=== PATIENT | male | born 1960 | race Two or more races ===

== ENCOUNTER 2017-09-27 07:35 | Inpatient (IN) | payer OTHER, MEDICARE ==
[~2017-09-27] VITALS: Ht 172.7 cm; Wt 125.6 kg
[~2017-09-27 07:35] MED LIST: CENTCHW4 CHEW; METO50TA PO
[2017-09-27] MEDS ORDERED: ceFAZolin 2 GM PREMIX 50 ML IV SCH (08:15)
[2017-09-27] MEDS ORDERED: LACTATED RINGER'S 1000 ML IV PRN (08:15)
[2017-09-27] MEDS ORDERED: CHLORHEXIDINE GLUCONATE 2 % 1 PACK (2 CLOTHS) TOPICAL PRN (08:15)
[2017-09-27] MEDS ORDERED: METOPROLOL TARTRATE 25 MG TAB PO PRN (08:15)
[2017-09-27] MEDS ORDERED: SODIUM CHLORID 0.9% 500 ML IV PRN (08:15)
[2017-09-27] MEDS ORDERED: POVIDONE IODINE 5% (ANTISEPSIS KIT) 4 APPLICATIONS EACH NARE PRN (08:15)
[2017-09-27] MEDS ORDERED: POVIDONE IODINE 7.5% SCRUB 118 ML BOTTLE TOPICAL SCH (08:15)
[2017-09-27] MEDS ORDERED: TRANEXAMIC ACID 1 GM PRIOR TO PROCEDURE IV SCH ×2 (09:00)
[2017-09-27] MEDS ORDERED: ACETAMINOPHEN 1000 MG/100 ML 100 ML IV ONE (09:04)
[2017-09-27] MEDS ORDERED: BUPIVACAINE LIPOSOME PF 1.3% 20 ML VIAL ONE (09:15)
[2017-09-27] MEDS ORDERED: XARE10TA PO (09:23)
[2017-09-27] MEDS ORDERED: PERC7.5T13 PO (09:23)
[2017-09-27] MEDS ORDERED: MAGNESIUM HYDROXIDE SUSP 30 ML CUP PO PRN (09:30)
[2017-09-27] MEDS ORDERED: SODIUM CHLORIDE 0.9% FLUSH 10 ML FLUSH IV FLUSH PRN (09:30)
[2017-09-27] MEDS ORDERED: PROMETHAZINE HCL 25 MG TAB PO PRN (09:30)
[2017-09-27] MEDS ORDERED: Post-op Orders (for Pharmacy) MISC XX ONE (09:30)
[2017-09-27] MEDS ORDERED: BISACODYL 10 MG SUPP RECTAL PRN (09:30)
[2017-09-27] MEDS ORDERED: ONDANSETRON HCL 4 MG/2 ML VIAL IVP PRN (09:30)
[2017-09-27] MEDS ORDERED: MORPHINE SULFATE 8 MG/ML INJ IV PUSH PRN (09:30)
[2017-09-27] MEDS ORDERED: TRANEXAMIC ACID INJ 1,000 MG in SODIUM CHLORIDE 0.9% INJ 100 ML IV SCH (09:30)
[2017-09-27] MEDS ORDERED: LACTULOSE SYRUP 20 GM/30 ML CUP PO PRN (09:30)
[2017-09-27] MEDS ORDERED: oxyCODONE/ACETAMINOPHEN 7.5 MG/325 MG TAB PO PRN (09:30)
[2017-09-27] MEDS ORDERED: oxyCODONE/ACETAMINOPHEN 5 MG/325 MG TAB PO PRN (09:30)
[2017-09-27] MEDS ORDERED: SENNOSIDES 8.6 MG TAB PO PRN (09:30)
--- NOTE | 2017-09-27 09:34 | HHI.DS ---
Discharge Summary Admission Date Sep 27, 2017 at 07:35 Discharge Date: Sep 29, 2017 Admitting Diagnosis Right knee osteoarthritis Diagnosis: (1) Osteoarthritis of right knee Diagnosis: Principal ICD Codes: M17.11 - Unilateral primary osteoarthritis, right knee Procedures Right total knee replacement Brief History This is a 57 year old male patient who presented with severe debilitating right knee pain from right osteoarthritis. He has failed all conservative care as outlined in previous outpatient clinic dictations. He now presents for right total knee replacement. Hospital Course The patient was taken to the operating room by the undersigned for the above procedures which he tolerated well. He was extubated then transferred to PACU in stable condition. The patient was subsequently transferred to the floor. The rest of his hospital stay was uneventful. After second procedure, he received adequate postoperative antibiotics. His diet was advanced as tolerated and he had full return of bowel function as well as making adequate urine output. We were able to covert IV pain meds to po pain meds. The patient received adequate physical therapy during his stay in is being discharged with detailed physical therapy recommendations and C. The patient was seen and examined on the day of discharge and found to be in stable condition. On Exam at discharge: Operative extremity was neurovascularly intact with dressing that is clean, dry and intact. Follow-up 10-[address] Mcneill @ orthopaedic clinic with a [facility]. Pt Condition on Discharge: Good Discharge Disposition: Disch w/ Home Health Serv Discharge Instructions Diet Instructions: As Tolerated, No Restrictions Activities You Can Perform: Regular-No Restrictions Activities to Avoid: Lifting/Bending, Prolonged Standing Angel Mcneill Jr., MD Sep 27, 2017 09:34
--- NOTE | 2017-09-27 09:35 | HHI.FF ---
Face to Face Verification Diagnosis: (1) Osteoarthritis of right knee Physical Therapy Gait training Knee: Total knee, Protocol: Right Right LE Weight Bearing: WB as tolerated Right LE Range of Motion: Active ROM Nursing Nursing: Other (no dressing changes) Dressing Changes: Do not change dressing I have seen patient Say Chin on 09/27/17. My clinical findings support the need for the requested home health care services because: Ltd mobility - disease progression High risk of falls I certify that my clinical findings support that this patient is homebound because: Post-op weakness Unsteady gait/balance Angel Mcneill Jr., MD Sep 27, 2017 09:35
[2017-09-27] MEDS: TRANEXAMIC ACID 1 GM POST-OP IV SCH ×4 (10:53→12:59)
[2017-09-27] MEDS: EXPAREL PERI-ARTICULAR INJECTION (TOTAL VOL. 60 ML) P-ARTICULR SCH ×4 (10:54→10:56)
--- NOTE | 2017-09-27 12:06 | PD.OP ---
cc: Angel Mcneill Jr., MD Operative Report Date of Surgery: Sep 27, 2017 Preoperative Diagnosis: Right knee osteoarthritis Postoperative Diagnosis: Same Procedure: Right total knee arthroplasty Anesthesia: Gen. Surgeon: Angel Mcneill Aerodynamics Engineer(s): BRITTNI Salazar The surgical procedure was assisted by my Advanced Registered Nurse Practitioner. My FUNERAL DRIVER presence was necessary throughout this case for the manipulation and positioning of the surgical extremity. My FUNERAL DRIVER was assisting me throughout the duration of this procedure. The skill set of an Advance Registered Nurse Practitioner was medically necessary to complete this procedure. During the surgical case, the surgical nurse practitioner was working at the back table and the Advance Registered Nurse Practitioner was directly assisting me. Resident Surgeon: Dixon Operation and Findings: ESTIMATED BLOOD LOSS: 150 cc TOURNIQUET TIME: 83 minutes at 250 mmHg pressure. JUSTIFICATION FOR PROCEDURE: The patient has end-stage osteoarthritis to the knee. There is an attached conservative measures pathway form in the chart that describes the nonoperative measures that were undertaken prior to consideration of surgical management. The patient understood the risks and benefits of surgical management. See my office notes for further details PROCEDURE: The patient was brought back to the operative theatre. Adequate anesthesia was obtained. The patient received intravenous Ancef. The right lower extremity was prepped and draped in the usual sterile fashion.The leg was exsanguinated, the tourniquet was raised. A standard anterior incision was performed followed by medial parapatellar arthrotomy was performed. End-stage arthritis was identified. Osteotomy of the patella was performed. We drilled holes for the patella. We trialed the patella component. We placed an intramedullary guide into the distal femur. We ultimately resected 9 mm off of the distal femur in 5 degrees of valgus. The remnants of the ACL and PCL were resected. Osteotomy of the proximal tibia was performed, resecting 5 mm off of the medial side. This was done with 3 degrees of posterior slope using an extramedullary guide. The distal end of the guide was placed in the mid aspect of the ankle. The femur was sized, and four chamfer cuts were completed in 3 of external rotation. We then cut the central box in the distal femur to replace the PCL. We resected the remnants of the menisci and removed osteophytes off of the femur and tibia. We then trialed the knee. We punched the tibia for the keel, and then used standard technique to cement in components. Excess cement was removed. We trialed the knee again and the final polyethylene thickness was chosen to provide extension to 0 degrees, and flexion of 140 degrees to gravity. The ligaments were appropriately balanced. Lateral release was not necessary to obtain excellent patellofemoral tracking. The final polyethylene was put into position after thorough irrigation. The tourniquet was released and adequate hemostasis was obtained. We then closed deep fascia with a #2 quilt sutures followed by skin with 2-0 Vicryl followed by rox. No drain was placed deep. IMPLANTS: DePuy Attune: Patella: size 35 Femur, posterior stabilized size 6 Tibia, rotating platform size 6 Tibial insert, rotating platform, posterior stabilized size 5 mm thickness. POSTP-OP PLAN OF ACTIVITY Antibiotics: Ancef DVT prophylaxis will be performed with SCDs, OLIVER garcia, early mobilization, and Lovenox while hospitalized (xeralto at discharge for 30 days) Weight bearing status: wbat Dressing: do not change Dispo: expected discharge 2-3 days with [facility] Angel Mcneill Jr., MD Sep 27, 2017 12:06
[2017-09-27] MEDS ORDERED: DO NOT ADM ANY ANTICOAGULANT DRUGS PRN (12:34)
[2017-09-27] MEDS: LACTATED RINGER'S 1000 ML INJ 1,000 ML IV SCH ×2 (13:00→23:33)
[2017-09-27] MEDS: KETOROLAC TROMETHAMINE 30 MG/ML (IVP) VIAL IVP SCH ×3 (13:50→22:49)
[2017-09-27] MEDS ORDERED: *morphine SULFATE 8 MG/ML PERIprocedure ONLY ONE ×2 (13:51→14:13)
--- NOTE | 2017-09-27 15:15 | PD.CONS ---
[facility] By [facility]. [facility] Reason for Consult Medical management Primary Care Physician No Primary Care Physician Diagnoses: History of Present Illness The patient is a 57-year-old male with past medical history of osteoarthritis who is presenting to the hospital for elective right knee replacement. The patient says that he has had a painful right knee for the past 3 years. He says he has not tried using steroid injections. He has been taking Vicodin for pain control. He has been ambulating with a cane. He says he is slowly able to go up and down stairs. He has been following up with orthopedic surgery who scheduled him for surgery on 09/27/17. The patient tolerated the procedure well. He is hoping to go home in a few days. He is quite hungry. He had no acute complaints. Discussed with family at the bedside. Review of Systems Except as stated in HPI: all other systems reviewed are Neg Past Family Social History Allergies: Coded Allergies: No Known Allergies (Unverified , 09/27/17) Past Medical History Hypertension Osteoarthritis Intestinal blockage status post surgical repair Past Surgical History Right wrist surgery Cholecystectomy Bilateral shoulder surgery Active Ordered Medications Current Medications Medications (Trade) Dose Ordered Sig/Argelia Route Start Time Stop Time Status Last Admin Lactated Ringer's 1,000 ml @ 30 mls/hr Q24H PRN IV 09/27/17 08:15 09/30/17 08:14 09/27/17 08:19 Sodium Chloride 500 ml @ 30 mls/hr [id number] PRN IV 09/27/17 08:15 09/30/17 08:14 (Lopressor) 25 mg AUTO CAMP ATTENDANT PRN PO 09/27/17 08:15 09/30/17 08:14 (Betadine 5% Antisepsis Kit) 1 applic AUTO CAMP ATTENDANT PRN EACH NARE 09/27/17 08:15 09/30/17 08:14 09/27/17 08:19 (Chlorhexidine 2% Cloth) 3 pack AUTO CAMP ATTENDANT PRN TOPICAL 09/27/17 08:15 09/30/17 08:14 09/27/17 08:19 (Betadine 7.5% Scrub) 1 applic ONCE TOPICAL 09/27/17 08:15 09/30/17 08:14 09/27/17 08:18 Cefazolin Sodium/ Dextrose 50 ml @ 100 mls/hr AUTO CAMP ATTENDANT IV 09/27/17 08:15 09/30/17 08:14 09/27/17 10:52 Tranexamic Acid 1000 mg/Sodium Chloride 110 ml @ 220 mls/hr ONCE IV 09/27/17 09:00 09/28/17 08:59 Tranexamic Acid 1000 mg/Sodium Chloride 110 ml @ 220 mls/hr ONCE IV 09/27/17 11:00 09/28/17 10:59 09/27/17 12:59 Bupivacaine Liposome 20 ml/ Sodium Chloride 60 ml @ 120 mls/hr ONCE P-ARTICULR 09/27/17 09:00 09/28/17 08:59 09/27/17 10:56 (Lopressor) 50 mg BID PO 09/27/17 21:00 Lactated Ringer's 1,000 ml @ 80 mls/hr [id number] IV 09/27/17 11:45 09/27/17 13:00 (NS Flush) 2 ml UNSCH PRN IV FLUSH 09/27/17 09:30 (NS Flush) 2 ml BID IV FLUSH 09/27/17 21:00 Cefazolin Sodium 1000 mg/Sodium Chloride 100 ml @ 200 mls/hr Q6H IV 09/27/17 17:00 09/28/17 05:29 (Lovenox Inj) 30 mg Q12H SQ 09/28/17 00:30 (Morphine Inj) 5 mg Q3H PRN IV PUSH 09/27/17 09:30 (Percocet 5-325 Mg) 1 tab Q4H PRN PO 09/27/17 09:30 (Percocet 5-325 Mg) 2 tab Q4H PRN PO 09/27/17 09:30 (Toradol Inj) 15 mg Q6H IVP 09/27/17 12:00 09/29/17 06:01 09/27/17 13:50 (Phenergan) 25 mg Q4H PRN PO 09/27/17 09:30 (Zofran Inj) 4 mg Q6H PRN IVP 09/27/17 09:30 (Ambien) 5 mg HS PRN PO 09/27/17 21:00 (Анна-Colace) 1 tab BID PO 09/27/17 21:00 (Milk Of Magnesia Liq) 30 ml Q12H PRN PO 09/27/17 09:30 (Senokot) 17.2 mg Q12H PRN PO 09/27/17 09:30 (Dulcolax Supp) 10 mg DAILY PRN RECTAL 09/27/17 09:30 (Lactulose Liq) 30 ml DAILY PRN PO 09/27/17 09:30 Miscellaneous Information ALL NURSING DEPARTME... UNSCH PRN .XX 09/27/17 12:34 09/28/17 12:33 Family History CAD Social History The patient denies smoking, drinking or using illicit substances. Physical Exam Vital Signs Vital Signs Date Time Temp Pulse Resp B/P (MAP) Pulse Ox O2 Delivery O2 Flow Rate FiO2 09/27/17 12:36 97.8 74 17 118/74 (89) 98 Nasal Cannula 3 09/27/17 08:00 98.6 60 16 127/90 (102) 98 Physical Exam GENERAL: This is a well-nourished, well-developed patient, in no apparent distress. SKIN: No rashes, ecchymoses or lesions. Cool and dry. HEAD: Atraumatic. Normocephalic. No temporal or scalp tenderness. EYES: Pupils equal round and reactive. Extraocular motions intact. No scleral icterus. No injection or drainage. ENT: Nose without bleeding, purulent drainage or septal hematoma. Throat without erythema, tonsillar hypertrophy or exudate. Uvula midline. Airway patent. NECK: Trachea midline. No JVD or lymphadenopathy. Supple, nontender, no meningeal signs. CARDIOVASCULAR: Regular rate and rhythm without murmurs, gallops, or rubs. RESPIRATORY: Clear to auscultation. Breath sounds equal bilaterally. No wheezes , rales, or rhonchi. GASTROINTESTINAL: Abdomen soft, non-tender, nondistended. No hepato-splenomegaly , or palpable masses. No guarding. MUSCULOSKELETAL: Right knee is bandaged and elevated. NEUROLOGICAL: Awake and alert. Cranial nerves II through XII intact. Motor and sensory grossly within normal limits. Five out of 5 muscle strength in all muscle groups. Normal speech. Assessment and Plan Assessment and Plan OA S/p right total knee arthroplasty 09/27/17. - anticoagulation, wound care and weightbearing per orthopedic surgery. - PT/ OT. - pain control with a bowel regimen. - incentive spirometry. HTN On Lopressor as an outpt. - resume home meds. - Vasotec as needed. PPx: Per orthopedic surgery Discussed Condition With Patient, patient's family Elier Gibson DO Sep 27, 2017 15:15
[2017-09-27 16:00] VITALS: BP 105/57; PULSE 72; RESP 19; TEMP 97.4; O2SAT 98
--- NOTE | 2017-09-27 16:16 | RADRPT ---
EXAM DATE/TIME: 09/27/2017 14:08 [place] COMPARISON: No previous studies available for comparison. INDICATIONS : Post operative knee x-ray. MEDICAL HISTORY : None. SURGICAL HISTORY : None. ENCOUNTER: Subsequent ACUITY: 1 day PAIN SCORE: 10/10 LOCATION: Right Knee. FINDINGS: AP and lateral views of the right knee demonstrate changes consistent with recent total knee arthropl asty with metallic hardware in place in the distal femur and proximal tibia. There is a radiolucent p atellar component. There is soft tissue gas present, as expected. CONCLUSION: Expected findings following recent right total knee arthroplasty. Zoran Ware MD on September 27, 2017 at 16:14 Board Certified Radiologist. This report was verified electronically.
[2017-09-27 20:00] VITALS: BP 128/69; PULSE 77; RESP 18; TEMP 96; O2SAT 95
[2017-09-27] MEDS ORDERED: ZOLPIDEM TARTRATE 5 MG TAB PO PRN (21:00)
[2017-09-27] MEDS: METOPROLOL TARTRATE 50 MG TAB PO SCH (22:02)
[2017-09-27] MEDS: DOCUSATE SODIUM 50 MG/SENNA 8.6 MG TAB PO SCH (22:02)
[2017-09-27] MEDS: oxyCODONE/ACETAMINOPHEN 5 MG/325 MG TAB PO PRN (22:02)
[2017-09-27] MEDS: SODIUM CHLORIDE 0.9% FLUSH 10 ML FLUSH IV FLUSH SCH (22:03)
[2017-09-28] VITALS: BP 107/71; PULSE 80; RESP 17; TEMP 96.9; O2SAT 97
[2017-09-28] MEDS: ENOXAPARIN SODIUM 30 MG/0.3 ML SYRINGE SQ SCH ×2 (00:48→12:23)
[2017-09-28] MEDS: oxyCODONE/ACETAMINOPHEN 5 MG/325 MG TAB PO PRN ×4 (02:35→17:36)
[2017-09-28 04:00] VITALS: BP 114/67; PULSE 73; RESP 16; TEMP 96.2; O2SAT 96
[2017-09-28] MEDS: KETOROLAC TROMETHAMINE 30 MG/ML (IVP) VIAL IVP SCH ×3 (05:27→17:35)
[2017-09-28 05:51] LABS: MEAN CELL VOLUME 97.2 FL (80.0-100.0); MEAN CORPUSCULAR HEMOGLOBIN 32.8 PG (27.0-34.0); MEAN CORPUSCULAR HGB CONC 33.7 % (32.0-36.0); PLATELET COUNT 275 TH/MM3 (150-450); RED BLOOD COUNT 3.29 MIL/MM3 (4.50-5.90); REVIEW FLAG FINAL; WHITE BLOOD COUNT 16.6 TH/MM3 (4.0-11.0)
[2017-09-28 06:12] LABS: BICARBONATE 25.3 MEQ/L (21.0-32.0); MAGNESIUM 1.6 MG/DL (1.5-2.5); POTASSIUM 4.6 MEQ/L (3.5-5.1)
[2017-09-28 08:00] VITALS: BP 113/66; PULSE 68; RESP 18; TEMP 96.5; O2SAT 94
[2017-09-28] MEDS: DOCUSATE SODIUM 50 MG/SENNA 8.6 MG TAB PO SCH ×3 (08:52→20:46)
[2017-09-28] MEDS: METOPROLOL TARTRATE 50 MG TAB PO SCH ×2 (08:52→20:46)
[2017-09-28] MEDS: SODIUM CHLORIDE 0.9% FLUSH 10 ML FLUSH IV FLUSH SCH ×2 (08:55→21:00)
[2017-09-28 12:00] VITALS: BP 115/73; PULSE 71; RESP 18; TEMP 96.1; O2SAT 98
[2017-09-28 12:17] LABS: HEMOGLOBIN A1a 0.8 %; HEMOGLOBIN A1b 1.1 %; HEMOGLOBIN Ao 86.2 %; HEMOGLOBIN F 0.8 %; HEMOGLOBIN LA1C 2.3 %; HEMOGLOBIN P3 3.6 %
[2017-09-28] MEDS: LACTATED RINGER'S 1000 ML INJ 1,000 ML IV SCH (12:45)
--- NOTE | 2017-09-28 12:55 | PD.ORT.PN ---
Subjective Distance Walked doing well. participating with PT. no CP/SOB Objective Vitals Vital Signs Date Time Temp Pulse Resp B/P (MAP) Pulse Ox O2 Delivery O2 Flow Rate FiO2 09/28/17 08:58 Room Air 09/28/17 08:00 96.5 68 18 113/66 (82) 94 09/28/17 06:27 17 09/28/17 04:00 96.2 73 16 114/67 (83) 96 09/28/17 03:31 17 09/28/17 00:05 Room Air 09/28/17 00:00 96.9 80 17 107/71 (83) 97 09/27/17 20:00 96.0 77 18 128/69 (88) 95 09/27/17 16:00 97.4 72 19 105/57 (73) 98 09/27/17 14:45 97.8 74 18 114/69 (84) 98 Nasal Cannula 2 09/27/17 14:15 75 18 102/64 (77) 98 Nasal Cannula 2 09/27/17 14:00 70 18 119/77 (91) 98 Nasal Cannula 2 09/27/17 13:45 66 18 127/76 (93) 100 Nasal Cannula 2 09/27/17 13:30 66 16 123/71 (88) 98 Nasal Cannula 2 09/27/17 13:15 67 18 120/74 (89) 98 Nasal Cannula 3 09/27/17 13:00 65 18 114/69 (84) 98 Nasal Cannula 3 I/O 09/27/17 09/27/17 09/27/17 09/28/17 09/28/17 09/28/17 07:00 15:00 23:00 07:00 15:00 23:00 Intake Total 1510 ml 650 ml 550 ml Output Total 150 ml 700 ml 450 ml Balance 1360 ml -50 ml 100 ml Intake Oral 650 ml 350 ml IV Total 110 ml 200 ml Other 1400 ml Output Urine Total 700 ml 450 ml Other 150 ml Result Diagram: 09/28/1752209/28/17522 Procedures Right total knee replacement Objective Remarks Alert awake and oriented -3. No acute distress. Pulmonary: Normal respiratory effort. Right lower extremity: Neurovascularly intact, +EHL/FHL, CPM, dressing clean, dry and intact. + PT/DP pulses. Supple compartments. Negative Homans sign. Left lower extremity: neurovascularly intact Assessment & Plan Problem List: (1) Osteoarthritis of right knee ICD Codes: M17.11 - Unilateral primary osteoarthritis, right knee Assessment and Plan POD 1- right TKA doing well. postop abx lovenox- xeralto at f/c for 30 days wbat no dressing changes dc home tomorrow with [facility] Angel Mcneill Jr., MD Sep 28, 2017 12:55
[2017-09-28] MEDS ORDERED: SODIUM CHLOR 0.9% 1000 ML INJ 1,000 ML IV SCH (14:45)
--- NOTE | 2017-09-28 15:11 | HHI.PR ---
Subjective Remarks The patient feels well. He has been working with physical therapy. His pain control is okay. Tolerating a diet. Discussed with nursing. Objective Vitals Vital Signs Date Time Temp Pulse Resp B/P (MAP) Pulse Ox O2 Delivery O2 Flow Rate FiO2 09/28/17 12:00 96.1 71 18 115/73 (87) 98 09/28/17 08:58 Room Air 09/28/17 08:00 96.5 68 18 113/66 (82) 94 09/28/17 06:27 17 09/28/17 04:00 96.2 73 16 114/67 (83) 96 09/28/17 03:31 17 09/28/17 00:05 Room Air 09/28/17 00:00 96.9 80 17 107/71 (83) 97 09/27/17 20:00 96.0 77 18 128/69 (88) 95 09/27/17 16:00 97.4 72 19 105/57 (73) 98 I/O 09/27/17 09/27/17 09/27/17 09/28/17 09/28/17 09/28/17 07:00 15:00 23:00 07:00 15:00 23:00 Intake Total 1510 ml 650 ml 550 ml Output Total 150 ml 700 ml 450 ml Balance 1360 ml -50 ml 100 ml Intake Oral 650 ml 350 ml IV Total 110 ml 200 ml Other 1400 ml Output Urine Total 700 ml 450 ml Other 150 ml Result Diagram: 09/28/17 0523 09/28/17 0523 Imaging Last Impressions Knee X-Ray 09/27/17 0000 Signed Impressions: Service Date/Time: Wednesday, September 27, 2017 14:08 - CONCLUSION: Expected findings following recent right total knee arthroplasty. Zoran Ware MD Objective Remarks GENERAL: This is a well-nourished, well-developed patient, in no apparent distress. SKIN: No rashes, ecchymoses or lesions. Cool and dry. HEAD: Atraumatic. Normocephalic. No temporal or scalp tenderness. EYES: Pupils equal round and reactive. Extraocular motions intact. No scleral icterus. No injection or drainage. ENT: Nose without bleeding, purulent drainage or septal hematoma. Throat without erythema, tonsillar hypertrophy or exudate. Uvula midline. Airway patent. NECK: Trachea midline. No JVD or lymphadenopathy. Supple, nontender, no meningeal signs. CARDIOVASCULAR: Regular rate and rhythm without murmurs, gallops, or rubs. RESPIRATORY: Clear to auscultation. Breath sounds equal bilaterally. No wheezes , rales, or rhonchi. GASTROINTESTINAL: Abdomen soft, non-tender, nondistended. No hepato-splenomegaly , or palpable masses. No guarding. MUSCULOSKELETAL: Right knee is bandaged and elevated. NEUROLOGICAL: Awake and alert. Cranial nerves II through XII intact. Motor and sensory grossly within normal limits. Five out of 5 muscle strength in all muscle groups. Normal speech. Procedures Right knee replacement Medications and IVs Current Medications Medications (Trade) Dose Ordered Sig/Argelia Route Start Time Stop Time Status Last Admin Lactated Ringer's 1,000 ml @ 30 mls/hr Q24H PRN IV 09/27/17 08:15 09/30/17 08:14 09/27/17 08:19 Sodium Chloride 500 ml @ 30 mls/hr [id number] PRN IV 09/27/17 08:15 09/30/17 08:14 (Lopressor) 25 mg RADIO REPORTER PRN PO 09/27/17 08:15 09/30/17 08:14 (Betadine 5% Antisepsis Kit) 1 applic RADIO REPORTER PRN EACH NARE 09/27/17 08:15 09/30/17 08:14 09/27/17 08:19 (Chlorhexidine 2% Cloth) 3 pack RADIO REPORTER PRN TOPICAL 09/27/17 08:15 09/30/17 08:14 09/27/17 08:19 (Betadine 7.5% Scrub) 1 applic ONCE TOPICAL 09/27/17 08:15 09/30/17 08:14 09/27/17 08:18 Cefazolin Sodium/ Dextrose 50 ml @ 100 mls/hr RADIO REPORTER IV 09/27/17 08:15 09/30/17 08:14 09/27/17 10:52 (Lopressor) 50 mg BID PO 09/27/17 21:00 09/28/17 08:52 Lactated Ringer's 1,000 ml @ 80 mls/hr [id number] IV 09/27/17 11:45 09/27/17 13:00 (NS Flush) 2 ml UNSCH PRN IV FLUSH 09/27/17 09:30 (NS Flush) 2 ml BID IV FLUSH 09/27/17 21:00 (Lovenox Inj) 30 mg Q12H SQ 09/28/17 00:30 09/28/17 12:23 (Morphine Inj) 5 mg Q3H PRN IV PUSH 09/27/17 09:30 (Percocet 5-325 Mg) 1 tab Q4H PRN PO 09/27/17 09:30 09/27/17 17:18 (Percocet 5-325 Mg) 2 tab Q4H PRN PO 09/27/17 09:30 09/28/17 12:24 (Toradol Inj) 15 mg Q6H IVP 09/27/17 12:00 09/29/17 06:01 09/28/17 12:23 (Phenergan) 25 mg Q4H PRN PO 09/27/17 09:30 (Zofran Inj) 4 mg Q6H PRN IVP 09/27/17 09:30 (Ambien) 5 mg HS PRN PO 09/27/17 21:00 (Анна-Colace) 1 tab BID PO 09/27/17 21:00 09/27/17 22:02 (Milk Of Magnesia Liq) 30 ml Q12H PRN PO 09/27/17 09:30 (Senokot) 17.2 mg Q12H PRN PO 09/27/17 09:30 (Dulcolax Supp) 10 mg DAILY PRN RECTAL 09/27/17 09:30 (Lactulose Liq) 30 ml DAILY PRN PO 09/27/17 09:30 Sodium Chloride 1,000 ml @ 100 mls/hr Q10H IV 09/28/17 14:45 09/29/17 00:44 A/P Assessment and Plan OA S/p right total knee arthroplasty 09/27/17. - anticoagulation, wound care and weightbearing per orthopedic surgery. - PT/ OT. - pain control with a bowel regimen. - incentive spirometry. HTN On Lopressor as an outpt. - resume home meds. - Vasotec as needed. Hyperglycemia/ Leukocytosis Likely a stress reaction. Hemoglobin A1c was not elevated. Afebrile. - Follow CBC. Renal insufficiency Unsure of baseline. - IV fluids. - Repeat BMP in the a.m. - Avoid nephrotoxic agents. Anemia Postoperative. - Follow CBC. PPx: Per orthopedic surgery Elier Gibson DO Sep 28, 2017 15:11
[2017-09-28 16:00] VITALS: BP 118/68; PULSE 77; RESP 18; TEMP 98; O2SAT 96
[2017-09-28 20:36] VITALS: BP 106/69; PULSE 70; RESP 18; TEMP 97.9; O2SAT 100
[2017-09-29] MEDS: ENOXAPARIN SODIUM 30 MG/0.3 ML SYRINGE SQ SCH ×2 (00:18→12:16)
[2017-09-29] MEDS: KETOROLAC TROMETHAMINE 30 MG/ML (IVP) VIAL IVP SCH ×2 (00:18→06:06)
[2017-09-29 00:21] VITALS: BP 100/71; PULSE 72; RESP 18; TEMP 96.8; O2SAT 100
[2017-09-29 06:49] LABS: HEMATOCRIT 28.7 % (39.0-51.0); MEAN CELL VOLUME 97.5 FL (80.0-100.0); MEAN CORPUSCULAR HEMOGLOBIN 33.8 PG (27.0-34.0); MEAN CORPUSCULAR HGB CONC 34.6 % (32.0-36.0); PLATELET COUNT 229 TH/MM3 (150-450); RED BLOOD COUNT 2.94 MIL/MM3 (4.50-5.90); REVIEW FLAG FINAL
[2017-09-29 07:11] LABS: BICARBONATE 28.1 MEQ/L (21.0-32.0); MAGNESIUM 1.9 MG/DL (1.5-2.5); POTASSIUM 4.4 MEQ/L (3.5-5.1)
[2017-09-29 08:01] VITALS: BP 95/67; PULSE 60; RESP 18; TEMP 97.7; O2SAT 96
[2017-09-29] MEDS: METOPROLOL TARTRATE 50 MG TAB PO SCH (08:24)
[2017-09-29] MEDS: DOCUSATE SODIUM 50 MG/SENNA 8.6 MG TAB PO SCH (08:24)
[2017-09-29] MEDS: SODIUM CHLORIDE 0.9% FLUSH 10 ML FLUSH IV FLUSH SCH (08:24)
[2017-09-29] MEDS: oxyCODONE/ACETAMINOPHEN 5 MG/325 MG TAB PO PRN (09:01)
[2017-09-29 11:53] VITALS: BP 115/72; PULSE 73; RESP 18; TEMP 96.1; O2SAT 99
--- NOTE | 2017-09-29 12:20 | PD.ORT.PN ---
Subjective Subjective Remarks no issues. pain controlled. no CP/SOB Objective Vitals Vital Signs Date Time Temp Pulse Resp B/P (MAP) Pulse Ox O2 Delivery O2 Flow Rate FiO2 09/29/17 11:53 96.1 73 18 115/72 (86) 99 09/29/17 08:01 97.7 60 18 95/67 (76) 96 09/29/17 08:00 96 Room Air 09/29/17 08:00 96 Room Air 09/29/17 00:21 96.8 72 18 100/71 (81) 100 09/28/17 20:36 97.9 70 18 106/69 (81) 100 09/28/17 16:00 98.0 77 18 118/68 (85) 96 I/O 09/28/17 09/28/17 09/28/17 09/29/17 09/29/17 09/29/17 07:00 15:00 23:00 07:00 15:00 23:00 Intake Total 550 ml 480 ml 360 ml 120 ml Output Total 450 ml Balance 100 ml 480 ml 360 ml 120 ml Intake Oral 350 ml 480 ml 360 ml 120 ml IV Total 200 ml Output Urine Total 450 ml # Voids 5 6 2 # Bowel Movements 0 2 1 Result Diagram: 09/29/17 0611 09/29/17 0611 Procedures Right total knee replacement Objective Remarks Alert awake and oriented -3. No acute distress. Pulmonary: Normal respiratory effort. Right lower extremity: Neurovascularly intact, +EHL/FHL, CPM, dressing clean, dry and intact. + PT/DP pulses. Supple compartments. Negative Homans sign. Left lower extremity: neurovascularly intact Assessment & Plan Problem List: (1) Osteoarthritis of right knee ICD Codes: M17.11 - Unilateral primary osteoarthritis, right knee Assessment and Plan POD 2- right TKA doing well. xeralto at f/c for 30 days wbat no dressing changes dc home today w [facility]. Rx in chart Angel Mcneill Jr., MD Sep 29, 2017 12:20
--- NOTE | 2017-09-29 14:24 | HHI.PR ---
Subjective Remarks The patient was getting ready to go home. He endorsed a minor cough. He denied any dysuria. Discussed with nursing. Objective Vitals Vital Signs Date Time Temp Pulse Resp B/P (MAP) Pulse Ox O2 Delivery O2 Flow Rate FiO2 09/29/17 11:53 96.1 73 18 115/72 (86) 99 09/29/17 08:01 97.7 60 18 95/67 (76) 96 09/29/17 08:00 96 Room Air 09/29/17 08:00 96 Room Air 09/29/17 00:21 96.8 72 18 100/71 (81) 100 09/28/17 20:36 97.9 70 18 106/69 (81) 100 09/28/17 16:00 98.0 77 18 118/68 (85) 96 I/O 09/28/17 09/28/17 09/28/17 09/29/17 09/29/17 09/29/17 07:00 15:00 23:00 07:00 15:00 23:00 Intake Total 550 ml 480 ml 360 ml 120 ml Output Total 450 ml Balance 100 ml 480 ml 360 ml 120 ml Intake Oral 350 ml 480 ml 360 ml 120 ml IV Total 200 ml Output Urine Total 450 ml # Voids 5 6 2 # Bowel Movements 0 2 1 Result Diagram: 09/29/17 0611 09/29/17 0611 Imaging Last Impressions Knee X-Ray 09/27/17 0000 Signed Impressions: Service Date/Time: Wednesday, September 27, 2017 14:08 - CONCLUSION: Expected findings following recent right total knee arthroplasty. Zoran Ware MD Objective Remarks GENERAL: This is a well-nourished, well-developed patient, in no apparent distress. SKIN: No rashes, ecchymoses or lesions. Cool and dry. HEAD: Atraumatic. Normocephalic. No temporal or scalp tenderness. EYES: Pupils equal round and reactive. Extraocular motions intact. No scleral icterus. No injection or drainage. ENT: Nose without bleeding, purulent drainage or septal hematoma. Throat without erythema, tonsillar hypertrophy or exudate. Uvula midline. Airway patent. NECK: Trachea midline. No JVD or lymphadenopathy. Supple, nontender, no meningeal signs. CARDIOVASCULAR: Regular rate and rhythm without murmurs, gallops, or rubs. RESPIRATORY: Clear to auscultation. Breath sounds equal bilaterally. No wheezes , rales, or rhonchi. GASTROINTESTINAL: Abdomen soft, non-tender, nondistended. No hepato-splenomegaly , or palpable masses. No guarding. MUSCULOSKELETAL: Right knee is bandaged and elevated. NEUROLOGICAL: Awake and alert. Cranial nerves II through XII intact. Motor and sensory grossly within normal limits. Five out of 5 muscle strength in all muscle groups. Normal speech. Procedures Right knee replacement Medications and IVs Current Medications Medications (Trade) Dose Ordered Sig/[place] Route Start Time Stop Time Status Last Admin Lactated Ringer's 1,000 ml @ 30 mls/hr Q24H PRN IV 09/27/17 08:15 09/30/17 08:14 09/27/17 08:19 Sodium Chloride 500 ml @ 30 mls/hr [id number] PRN IV 09/27/17 08:15 09/30/17 08:14 (Lopressor) 25 mg [employer] PRN PO 09/27/17 08:15 09/30/17 08:14 (Betadine 5% Antisepsis Kit) 1 applic [employer] PRN EACH NARE 09/27/17 08:15 09/30/17 08:14 09/27/17 08:19 (Chlorhexidine 2% Cloth) 3 pack [employer] PRN TOPICAL 09/27/17 08:15 09/30/17 08:14 09/27/17 08:19 (Betadine 7.5% Scrub) 1 applic ONCE TOPICAL 09/27/17 08:15 09/30/17 08:14 09/27/17 08:18 Cefazolin Sodium/ Dextrose 50 ml @ 100 mls/hr [employer] IV 09/27/17 08:15 09/30/17 08:14 09/27/17 10:52 (Lopressor) 50 mg BID PO 09/27/17 21:00 09/29/17 08:24 Lactated Ringer's 1,000 ml @ 80 mls/hr [id number] IV 09/27/17 11:45 09/27/17 13:00 (NS Flush) 2 ml UNSCH PRN IV FLUSH 09/27/17 09:30 (NS Flush) 2 ml BID IV FLUSH 09/27/17 21:00 09/29/17 08:24 (Lovenox Inj) 30 mg Q12H SQ 09/28/17 00:30 09/29/17 12:16 (Morphine Inj) 5 mg Q3H PRN IV PUSH 09/27/17 09:30 09/28/17 20:48 (Percocet 5-325 Mg) 1 tab Q4H PRN PO 09/27/17 09:30 09/27/17 17:18 (Percocet 5-325 Mg) 2 tab Q4H PRN PO 09/27/17 09:30 09/29/17 09:01 (Phenergan) 25 mg Q4H PRN PO 09/27/17 09:30 (Zofran Inj) 4 mg Q6H PRN IVP 09/27/17 09:30 (Ambien) 5 mg HS PRN PO 09/27/17 21:00 (Анна-Colace) 1 tab BID PO 09/27/17 21:00 09/29/17 08:24 (Milk Of Magnesia Liq) 30 ml Q12H PRN PO 09/27/17 09:30 (Senokot) 17.2 mg Q12H PRN PO 09/27/17 09:30 (Dulcolax Supp) 10 mg DAILY PRN RECTAL 09/27/17 09:30 (Lactulose Liq) 30 ml DAILY PRN PO 09/27/17 09:30 09/28/17 17:35 A/P Assessment and Plan OA S/p right total knee arthroplasty 09/27/17. - anticoagulation, wound care and weightbearing per orthopedic surgery. - PT/ OT. - pain control with a bowel regimen. - incentive spirometry. HTN On Lopressor as an outpt. Well controlled. - resume home meds. - Vasotec as needed. Leukocytosis Likely a stress reaction. Afebrile. The pt endorses a cough. - CXR pending. Renal insufficiency Unsure of baseline. - IV fluids. - Avoid nephrotoxic agents. - follow up with PCP. Anemia Postoperative. - Follow CBC. Stable. PPx: Per orthopedic surgery Discharge Planning Per primary Elier Gibson DO Sep 29, 2017 14:24
--- NOTE | 2017-09-29 15:00 | RADRPT ---
EXAM DATE/TIME: 09/29/2017 13:39 [facility] COMPARISON: No previous studies available for comparison. INDICATIONS : Short of breath. Pneumonia per order. MEDICAL HISTORY : Hypertension. Hypercholesterolemia. SURGICAL HISTORY : None. ENCOUNTER: Initial ACUITY: 2 days PAIN SCORE: 0/10 LOCATION: Bilateral chest FINDINGS: A single view of the chest demonstrates the lungs to be symmetrically aerated without evidence of mas s, infiltrate or effusion. The cardiomediastinal contours are unremarkable. Osseous structures are intact. CONCLUSION: 1. Negative portable chest. Manas Zambrano MD on September 29, 2017 at 14:57 Board Certified Radiologist. This report was verified electronically.
== END 2017-09-29 15:02 | disposition home health service (06) | DRG 470 ==
LOC: HSDI 07:35 → N06A 15:01
PROVIDERS: ADMIT Orthopaedic Surgery; ATTEND Orthopaedic Surgery
PROC: 0SRC0J9 Replacement of Right Knee Joint with Synthetic Substitute, Cemented, Open Approach (ICD-10-PCS; principal; 2017-09-27 09:19)
DX: M17.11 Unilateral primary osteoarthritis, right knee (principal); Z99.81 Dependence on supplemental oxygen; Z68.41 Body mass index [BMI] 40.0-44.9, adult; I10 Essential (primary) hypertension; E66.9 Obesity, unspecified; J44.9 Chronic obstructive pulmonary disease, unspecified; D64.9 Anemia, unspecified; N28.9 Disorder of kidney and ureter, unspecified; R73.9 Hyperglycemia, unspecified; Z87.891 Personal history of nicotine dependence
CPT/HCPCS: 71010; 73560; 80048; 83036; 83735; 85027; 86850; 86900; 86901; 94150; C1776; C9290; J0131; J0690; J1650; J1885; J2270; J7120; L1830

== ENCOUNTER 2018-03-27 21:14 | Emergency (ER) | payer OTHER, MEDICAID ==
[~2018-03-27 21:14] MED LIST changes: +PERC7.5T13 PO; +XARE10TA PO
[2018-03-27 21:23] VITALS: BP 154/93; PULSE 65; RESP 15; TEMP 98.4; O2SAT 95
[2018-03-27] MEDS ORDERED: SODIUM CHLOR 0.9% 1000 ML INJ 1,000 ML IV SCH (21:44)
[2018-03-27] MEDS ORDERED: KETOROLAC TROMETHAMINE 30 MG/ML (IVP) VIAL IVP ONE (21:45)
[2018-03-27] MEDS ORDERED: SODIUM CHLORIDE 0.9% FLUSH 10 ML FLUSH IV FLUSH PRN (21:45)
[2018-03-27] MEDS ORDERED: MORPHINE SULFATE 4 MG/ML INJ IV PUSH ONE (21:45)
[2018-03-27] MEDS ORDERED: ONDANSETRON ODT 4 MG TAB PO ONE (21:45)
--- NOTE | 2018-03-27 21:50 | PD ---
HPI Chief Complaint: Flank/Kidney Pain Time Seen by Provider: 21:38 Travel History International Travel<30 days: No Contact w/Intl Traveler<30days: No Traveled to known affect area: No History of Present Illness HPI The patient is a 57-year-old male who presents to emergency department for back pain. The patient notes an intermittent history of back pain with the last several years ago which has progressed in the last 3 weeks. The pain is located mid to right lower back, nonradiating, occasionally worse with certain movements in certain positions. The patient was seen at a hospital in [place] last week and was diagnosed with a kidney stone that was 4 mm. However, the patient states he continues to have pain and medications did not help. The patient denies any dysuria, frequency, urgency, or hematuria. He does complain of mild nausea which started today but denies any subsequent vomiting. Symptoms are moderate. He does have a history of kidney stones in the past. He denies any recent injuries or lifting injuries to the back. PFSH Past Medical History Anxiety: No Depression: No Cancer: No Cardiovascular Problems: No High Cholesterol: Yes (HIGH CHOLESTEROL) Diabetes: No Endocrine: No Genitourinary: No Hepatitis: No Hiatal Hernia: No Hypertension: Yes Immune Disorder: No Kidney Stones: Yes Musculoskeletal: Yes (OA) Neurologic: No Psychiatric: No Reproductive: No Respiratory: No Thyroid Disease: No Tetanus Vaccination: Unknown Influenza Vaccination: Yes Past Surgical History Abdominal Surgery: Yes (BLOCKAGE IN INTESTINE) AICD: No Cardiac Surgery: No Cholecystectomy: Yes Ear Surgery: No Endocrine Surgery: Yes Eye Surgery: No Genitourinary Surgery: No Joint Replacement: No Oral Surgery: No Pacemaker: No Thoracic Surgery: No Other Surgery: Yes Social History Alcohol Use: No Tobacco Use: No Substance Use: No Allergies-Medications (Allergen,Severity, Reaction): Coded Allergies: No Known Allergies (Unverified , 03/27/18) Reported Meds & Prescriptions Reported Meds & Active Scripts Active Reported Centrum (Multiple Vitamins W/ Minerals) 1 Chew 1 Tab CHEW DAILY Metoprolol Tartrate 50 Mg Tab 50 Mg PO BID Review of Systems Except as stated in HPI: all other systems reviewed are Neg General / Constitutional: No: Fever Cardiovascular: No: Chest Pain or Discomfort Respiratory: No: Shortness of Breath Gastrointestinal: Positive: Nausea, No: Vomiting, Diarrhea, Abdominal Pain Genitourinary: No: Urgency, Frequency, Dysuria, Hematuria Musculoskeletal: Positive: Pain Skin: No Rash Physical Exam Narrative GENERAL: Awake, alert, nontoxic-appearing 57-year-old male who appears his stated age and is in no acute respiratory distress. SKIN: Focused skin assessment warm/dry. No stigmata of shingles. HEAD: Atraumatic. Normocephalic. EYES: Pupils equal and round. No scleral icterus. No injection or drainage. ENT: No nasal bleeding or discharge. Mucous membranes pink and moist. NECK: Trachea midline. No JVD. CARDIOVASCULAR: Regular rate and rhythm. No murmur appreciated. RESPIRATORY: No accessory muscle use. Clear to auscultation. Breath sounds equal bilaterally. GASTROINTESTINAL: Abdomen soft, well-healed midline scar. No rebound tenderness , guarding, rigidity. Back: No CVA tenderness. Mild tenderness over the midline and right sacroiliac. MUSCULOSKELETAL: No obvious deformities. No clubbing. No cyanosis. No edema. NEUROLOGICAL: Awake and alert. No obvious cranial nerve deficits. Motor grossly within normal limits. Normal speech. PSYCHIATRIC: Appropriate mood and affect; insight and judgment normal. Data Data Last Documented VS Vital Signs Date Time Temp Pulse Resp B/P (MAP) Pulse Ox O2 Delivery O2 Flow Rate FiO2 03/27/18 21:23 98.4 65 15 154/93 (113) 95 Orders Orders Complete Blood Count With Diff (03/27/18 21:44) Comprehensive Metabolic Panel (03/27/18 21:44) Lipase (03/27/18 21:44) Lactic Acid (03/27/18 21:44) Urinalysis - C+S If Indicated (03/27/18 21:44) Ct Abd/Pel W/O Iv Contrast (03/27/18 21:44) Iv Access Insert/Monitor (03/27/18 21:44) Ecg Monitoring (03/27/18 21:44) Oximetry (03/27/18 21:44) Morphine Inj (Morphine Inj) (03/27/18 21:45) Sodium Chlor 0.9% 1000 Ml Inj (Ns 1000 M (03/27/18 21:44) Sodium Chloride 0.9% Flush (Ns Flush) (03/27/18 21:45) Ketorolac Inj (Toradol Inj) (03/27/18 21:45) Ondansetron Odt (Zofran Odt) (03/27/18 21:45) Labs Laboratory Tests Test 03/27/18 21:45 03/27/18 21:55 White Blood Count 13.5 TH/MM3 Red Blood Count 4.46 MIL/MM3 Hemoglobin 14.4 GM/DL Hematocrit 42.9 % Mean Corpuscular Volume 96.2 FL Mean Corpuscular Hemoglobin 32.2 PG Mean Corpuscular Hemoglobin Concent 33.5 % Red Cell Distribution Width 13.4 % Platelet Count 315 TH/MM3 Mean Platelet Volume 7.9 FL Neutrophils (%) (Auto) 67.0 % Lymphocytes (%) (Auto) 24.8 % Monocytes (%) (Auto) 7.5 % Eosinophils (%) (Auto) 0.3 % Basophils (%) (Auto) 0.4 % Neutrophils # (Auto) 9.1 TH/MM3 Lymphocytes # (Auto) 3.3 TH/MM3 Monocytes # (Auto) 1.0 TH/MM3 Eosinophils # (Auto) 0.0 TH/MM3 Basophils # (Auto) 0.0 TH/MM3 CBC Comment DIFF FINAL Differential Comment Urine Color LIGHT-YELLOW Urine Turbidity CLEAR Urine pH 7.0 Urine Specific [place] 1.006 Urine Protein NEG mg/dL Urine Glucose (UA) NEG mg/dL Urine Ketones NEG mg/dL Urine Occult Blood NEG Urine Nitrite NEG Urine Bilirubin NEG Urine Urobilinogen LESS THAN 2.0 MG/DL Urine Leukocyte Esterase NEG Urine Squamous Epithelial Cells <1 /hpf Urine Bacteria RARE /hpf Microscopic Urinalysis Comment CULT NOT INDICATED Blood Urea Nitrogen 17 MG/DL Creatinine 1.14 MG/DL Random Glucose 101 MG/DL Total Protein 8.3 GM/DL Albumin 3.6 GM/DL Calcium Level 9.4 MG/DL Alkaline Phosphatase 135 U/L Aspartate Amino Transf (AST/SGOT) 37 U/L Alanine Aminotransferase (ALT/SGPT) 43 U/L Total Bilirubin 0.4 MG/DL Sodium Level 139 MEQ/L Potassium Level 4.9 MEQ/L Chloride Level 105 MEQ/L Carbon Dioxide Level 26.8 MEQ/L Anion Gap 7 MEQ/L Estimat Glomerular Filtration Rate 66 ML/MIN Lipase 274 U/L Lactic Acid Level 1.7 mmol/L MDM Medical Decision Making Medical Screen Exam Complete: No Emergency Medical Condition: No Medical Record Reviewed: No Interpretation(s) Laboratory Tests Test 03/27/18 21:45 03/27/18 21:55 White Blood Count 13.5 TH/MM3 Red Blood Count 4.46 MIL/MM3 Hemoglobin 14.4 GM/DL Hematocrit 42.9 % Mean Corpuscular Volume 96.2 FL Mean Corpuscular Hemoglobin 32.2 PG Mean Corpuscular Hemoglobin Concent 33.5 % Red Cell Distribution Width 13.4 % Platelet Count 315 TH/MM3 Mean Platelet Volume 7.9 FL Neutrophils (%) (Auto) 67.0 % Lymphocytes (%) (Auto) 24.8 % Monocytes (%) (Auto) 7.5 % Eosinophils (%) (Auto) 0.3 % Basophils (%) (Auto) 0.4 % Neutrophils # (Auto) 9.1 TH/MM3 Lymphocytes # (Auto) 3.3 TH/MM3 Monocytes # (Auto) 1.0 TH/MM3 Eosinophils # (Auto) 0.0 TH/MM3 Basophils # (Auto) 0.0 TH/MM3 CBC Comment DIFF FINAL Differential Comment Urine Color LIGHT-YELLOW Urine Turbidity CLEAR Urine pH 7.0 Urine Specific [place] 1.006 Urine Protein NEG mg/dL Urine Glucose (UA) NEG mg/dL Urine Ketones NEG mg/dL Urine Occult Blood NEG Urine Nitrite NEG Urine Bilirubin NEG Urine Urobilinogen LESS THAN 2.0 MG/DL Urine Leukocyte Esterase NEG Urine Squamous Epithelial Cells <1 /hpf Urine Bacteria RARE /hpf Microscopic Urinalysis Comment CULT NOT INDICATED Blood Urea Nitrogen 17 MG/DL Creatinine 1.14 MG/DL Random Glucose 101 MG/DL Total Protein 8.3 GM/DL Albumin 3.6 GM/DL Calcium Level 9.4 MG/DL Alkaline Phosphatase 135 U/L Aspartate Amino Transf (AST/SGOT) 37 U/L Alanine Aminotransferase (ALT/SGPT) 43 U/L Total Bilirubin 0.4 MG/DL Sodium Level 139 MEQ/L Potassium Level 4.9 MEQ/L Chloride Level 105 MEQ/L Carbon Dioxide Level 26.8 MEQ/L Anion Gap 7 MEQ/L Estimat Glomerular Filtration Rate 66 ML/MIN Lipase 274 U/L Lactic Acid Level 1.7 mmol/L Last Impressions Abdomen/Pelvis CT 03/27/18 1698 Signed Impressions: Service Date/Time: Tuesday, March 27, 2018 22:42 - CONCLUSION: 1. 4 mm distal right ureteral calcified calculus with minimal right-sided hydroureteronephrosis. 2. Multiple additional punctate bilateral calyceal calculi, as above. Manas Zambrano MD Differential Diagnosis Differential diagnosis includes nephrolithiasis, pyelonephritis, hydronephrosis , musculoskeletal pain, pancreatitis, UTI. Narrative Course IV was established, labs are drawn and sent, and the patient was placed on cardiac telemetry monitoring and continuous pulse oximetry monitoring. 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 Noncontrast CT the abdomen and pelvis was obtained to evaluate for renal stone. Patient's creatinine is unremarkable. UA is negative. White count is slightly elevated. Diagnosis Primary Impression: Ureterolithiasis Patient Instructions: General Instructions Additional Instructions: Medications as directed. Follow-up with your primary physician. Return if symptoms worsen or progress. Please provide the patient a copy of his CT results and lab results at discharge. Strain urine. Follow-up with urology. Med/Other Pt SpecificInfo: Prescription(s) given Scripts Tamsulosin (Flomax) 0.4 Mg Cap 0.4 MG PO HS for Manage Prostate Problems, #7 CAP 0 Refills Prov: Vinay Spence MD 03/27/18 Hydrocodone-Acetaminophen ([place]) 5 Mg-325 Mg Tab 1 TAB PO Q6H Y for PAIN, #12 TAB 0 Refills Prov: Vinay Spence MD 03/27/18 Ibuprofen (Ibuprofen) 600 Mg Tab 600 MG PO Q6H Y for Pain/Inflammation, #20 TAB 0 Refills Prov: Vinay Spence MD 03/27/18 Disposition: DISCHARGE HOME Condition: Stable Vinay Spence MD March 27, 2018 21:50
[2018-03-27 22:07] LABS: AUTOMATED NEUTROPHIL # 9.1 TH/MM3 (1.8-7.7); BASOPHIL % 0.4 % (0.0-2.0); EOSINOPHIL % 0.3 % (0.0-4.0); HEMATOCRIT 42.9 % (39.0-51.0); HEMOGLOBIN 14.4 GM/DL (13.0-17.0); LYMPH % 24.8 % (9.0-44.0); LYMPHOCYTE # 3.3 TH/MM3 (1.0-4.8); MEAN CELL VOLUME 96.2 FL (80.0-100.0); MEAN CORPUSCULAR HEMOGLOBIN 32.2 PG (27.0-34.0); MEAN CORPUSCULAR HGB CONC 33.5 % (32.0-36.0); MEAN PLATELET VOLUME 7.9 FL (7.0-11.0); MONO % 7.5 % (0.0-8.0); PLATELET COUNT 315 TH/MM3 (150-450); RED BLOOD COUNT 4.46 MIL/MM3 (4.50-5.90); RED CELL DISTRIBUTION WIDTH 13.4 % (11.6-17.2); WHITE BLOOD COUNT 13.5 TH/MM3 (4.0-11.0)
[2018-03-27 22:22] LABS: BACTERIA, URINE RARE /hpf; BILIRUBIN, URINE NEG (NEG); BLOOD, URINE NEG (NEG); GLUCOSE,URINE NEG (NEG); KETONE, URINE NEG (NEG); NITRITE,URINE NEG (NEG); SQUAMOUS EPITHELIAL CELL URINE <1 /hpf (0-5); URINE COLOR LIGHT-YELLOW (YELLW/STRAW); URINE LEUKOCYTE ESTERASE NEG (NEG)
[2018-03-27 22:36] LABS: ALBUMIN 3.6 GM/DL (3.4-5.0); AST (GOT) 37 U/L (15-37); BICARBONATE 26.8 MEQ/L (21.0-32.0); BLOOD UREA NITROGEN 17 MG/DL (7-18); CALCIUM 9.4 MG/DL (8.5-10.1); CHLORIDE 105 MEQ/L (98-107); CREATININE 1.14 MG/DL (0.60-1.30); GLOMERULAR FILTRATION RATE 66 ML/MIN (>89); GLUCOSE,RANDOM 101 MG/DL (74-106); SODIUM (NA) 139 MEQ/L (136-145)
[2018-03-27 22:38] LABS: ALKALINE PHOSPHATASE 135 U/L (45-117); ALT (GPT) 43 U/L (12-78); TOTAL BILIRUBIN ADULT 0.4 MG/DL (0.2-1.0); TOTAL PROTEIN 8.3 GM/DL (6.4-8.2)
--- NOTE | 2018-03-27 22:55 | RADRPT ---
EXAM DATE/TIME: 03/27/2018 22:42 [facility] COMPARISON: No previous studies available for comparison. INDICATIONS : Right flank pain. ORAL CONTRAST: No oral contrast ingested. RADIATION DOSE: 13.54 CTDIvol (mGy) MEDICAL HISTORY : Hypertension. Renal calculi. SURGICAL HISTORY : Cholecystectomy. Bowel resection ENCOUNTER: Initial ACUITY: 1 day PAIN SCALE: 9/10 LOCATION: Right flank TECHNIQUE: Volumetric scanning of the abdomen and pelvis was performed. Using automated exposure control and ad justment of the mA and/or kV according to patient size, radiation dose was kept as low as reasonably achievable to obtain optimal diagnostic quality images. DICOM format image data is available electro nically for review and comparison. FINDINGS: LOWER LUNGS: The visualized lower lungs are clear. LIVER: Homogeneous density without lesion. There is no dilation of the biliary tree. Gallbladder is absent. SPLEEN: Normal size without lesion. PANCREAS: Within normal limits. KIDNEYS: 2 punctate calyceal calculi in the superior pole the right kidney. There are also punctate calyceal c alculi in the superior pole and mid pole of the left kidney. There is a 4 mm distal right ureteral ca lcified calculus. Minimal right hydroureteronephrosis. ADRENAL GLANDS: Within normal limits. VASCULAR: There is no aortic aneurysm. BOWEL/MESENTERY: The stomach, small bowel, and colon demonstrate no acute abnormality. Postsurgical features. There is no free intraperitoneal air or fluid. ABDOMINAL WALL: Within normal limits. RETROPERITONEUM: There is no lymphadenopathy. BLADDER: No wall thickening or mass. No bladder diverticula. REPRODUCTIVE: Within normal limits. INGUINAL: There is no lymphadenopathy or hernia. MUSCULOSKELETAL: Within normal limits for patient age. CONCLUSION: 1. 4 mm distal right ureteral calcified calculus with minimal right-sided hydroureteronephrosis. 2. Multiple additional punctate bilateral calyceal calculi, as above. Manas Zambrano MD on March 27, 2018 at 22:50 Board Certified Radiologist. This report was verified electronically.
[2018-03-27] MEDS ORDERED: IBUP-232 PO (23:15)
[2018-03-27] MEDS ORDERED: TAMS5CAP PO (23:15)
[2018-03-27] MEDS ORDERED: NORC5TAB PO (23:15)
== END 2018-03-27 23:59 | disposition home or self-care (01) ==
LOC: NEPC 21:14
DX: N13.2 Hydronephrosis with renal and ureteral calculous obstruction (principal); E78.00 Pure hypercholesterolemia, unspecified; I10 Essential (primary) hypertension; M19.90 Unspecified osteoarthritis, unspecified site; Z87.442 Personal history of urinary calculi
CPT/HCPCS: 74176; 80053; 81001; 83605; 83690; 85025; 96361; 96374; 96375; 99284; J1885; J2270; J7030